=== PATIENT | female | born 1985 | race Caucasian/White ===

== ENCOUNTER 2017-12-28 20:15 | Emergency (ER) | payer OTHER ==
[2017-12-29] MEDS: TETRACAINE 0.5% OPHTH SOLN 4ML OS
[2017-12-29] MEDS: CIPROFLOXACIN 0.3% OPHTH SOLN 2.5ML OS (00:23)
== END 2017-12-29 00:25 | disposition home or self-care (01) ==
LOC: M ED 12-29 00:25
DX: H10.022 Other mucopurulent conjunctivitis, left eye (principal); E03.9 Hypothyroidism, unspecified; K21.9 Gastro-esophageal reflux disease without esophagitis; Z79.899 Other long term (current) drug therapy
CPT/HCPCS: 99283

== ENCOUNTER 2018-12-28 15:16 | Emergency (ER) | payer OTHER ==
[~2018-12-28] VITALS: Ht 165.1 cm; Wt 68.2 kg
[~2018-12-28 15:16] MED LIST: PROT1TAB2 PO; SYNT25TA PO; VIGA0.02 OS
[2018-12-28] MEDS ORDERED: NITR0.4S14 SL (15:23)
--- NOTE | 2018-12-28 17:36 | REP ---
Right groin ultrasound with Doppler assessment: History: Right-sided pelvic pain, rule out pseudoaneurysm. The patient gives a history of cardiac cath access right groin December 10, 2018 with pain. Findings: Scanning in the right groin shows no evidence of pseudoaneurysm. There are small hypoechoic areas adjacent to the proximal superficial femoral artery compatible with small areas of hematoma. No flow is seen. There are two hypoechoic areas measuring 2.8 x 0.4 x 0.5 cm and 1.0 x 0.8 x 0.6 cm. Normal flow is seen in the common femoral and superficial femoral artery proximally on the right. The common femoral vein compresses normally. There are normal-appearing inguinal lymph nodes. Impression: No evidence of pseudoaneurysm. Small areas of hypoechoic texture consistent with small hematoma. Electronically Signed by Saravanan Ortiz MD 12/28/2018 06:51 P
[2018-12-28 18:23] VITALS: BP 120/78
== END 2018-12-28 19:13 | disposition home or self-care (01) ==
LOC: M ED 15:16
DX: L76.32 Postprocedural hematoma of skin and subcutaneous tissue following other procedure (principal); Z98.61 Coronary angioplasty status; I25.2 Old myocardial infarction; E03.9 Hypothyroidism, unspecified

== ENCOUNTER 2019-10-15 16:47 | Emergency (ER) | payer OTHER ==
[~2019-10-15 16:47] MED LIST changes: +NITR0.4S14 SL
[2019-11-21 09:30] LABS: ALBUMIN 3.8 GM/DL (3.2-5.2); ALT/SGPT 44 U/L (12-78); BILIRUBIN,TOTAL 0.4 MG/DL (0.2-1.0); BLOOD UREA NITROGEN 15 MG/DL (7-18); CALCIUM LEVEL 9.3 MG/DL (8.5-10.1); CARBON DIOXIDE LEVEL 27 MEQ/L (21-32); CHLORIDE LEVEL 107 MEQ/L (98-107); CREATININE FOR GFR 1.02 MG/DL (0.55-1.30); GLOMERULAR FILTRATION RATE > 60.0 (>60); GLUCOSE, FASTING 84 MG/DL (70-100); POTASSIUM SERUM 4.2 MEQ/L (3.5-5.1); SODIUM LEVEL 140 MEQ/L (136-145); TOTAL PROTEIN 6.5 GM/DL (6.4-8.2); TROPONIN I < 0.02 NG/ML (< 0.10)
--- NOTE | 2019-11-30 15:33 | ECGEPIP ---
SINUS BRADYCARDIA BORDERLINE ECG NONSPECIFIC ST & T-WAVE ABNORMALITY INTERPRETATION BASED ON A DEFAULT AGE OF 40 YEARS NO OLD AVAILABLE SEE SCANNED DOWNTIME REPORT MTDD
[2019-12-05 20:27] LABS: BASO # 0.1 10^3/uL (0.0-0.2); BASO % 0.6 % (0.0-1.0); EOS # 0.4 10^3/uL (0.0-0.5); EOS % 4.6 % (0.0-3.0); HEMATOCRIT 37.4 % (36.0-47.0); HEMOGLOBIN 12.8 g/dl (12.0-15.5); LYMPH # 2.8 10^3/uL (1.5-5.0); LYMPH % 28.8 % (24.0-44.0); MEAN CORPUSCULAR HGB CONC 34.2 g/dl (32.0-36.5); MEAN CORPUSCULAR VOLUME 87.6 fl (80.0-96.0); MONO # 0.7 10^3/uL (0.0-0.8); MONO % 7.7 % (0.0-5.0); NEUTROPHILS # 5.6 10^3/uL (1.5-8.5); PLATELET COUNT, AUTOMATED 198 10^3/uL (150-450); RED BLOOD COUNT 4.27 10^6/uL (4.00-5.40); WHITE BLOOD COUNT 9.6 10^3/uL (4.0-10.0)
== END 2019-10-15 18:40 | disposition home or self-care (01) ==
LOC: M ED 16:47
DX: R00.2 Palpitations (principal); I25.2 Old myocardial infarction; K21.9 Gastro-esophageal reflux disease without esophagitis; I71.2 Thoracic aortic aneurysm, without rupture; Z87.891 Personal history of nicotine dependence; Z79.899 Other long term (current) drug therapy; Z91.041 Radiographic dye allergy status

== ENCOUNTER → 2019-12-30 | Outpatient (CLI) | payer OTHER ==
--- NOTE | 2019-12-30 11:13 | REPVR ---
PROCEDURE INFORMATION: Exam: CT Maxillofacial Without Contrast, Sinus Exam date and time: 12/30/2019 9:11 AM Age: 34 years old Clinical indication: Condition or disease; Other: Chronic pna sinusitis TECHNIQUE: Imaging protocol: CT Maxillofacial without contrast. Focus on the sinuses. Radiation optimization: All CT scans at this facility use at least one of these dose optimization techniques: automated exposure control; mA and/or kV adjustment per patient size (includes targeted exams where dose is matched to clinical indication); or iterative reconstruction. COMPARISON: No relevant prior studies available. FINDINGS: Frontal sinuses: Normal. No air-fluid levels. Ethmoid air cells: Normal. No air-fluid levels. Sphenoid sinuses: Normal. No air-fluid levels. Maxillary sinuses: There is mild mucosal thickening along the floor of the right maxillary sinus. No air-fluid levels. Ostiomeatal units are patent. Nasal cavity/Septum: There is leftward nasal septal deviation with a spur. This impinges upon the inferior nasal turbinate. Orbital cavity: Orbits are normal. Globes are unremarkable. Bones/joints: Unremarkable. Soft tissues: Unremarkable. IMPRESSION: No significant sinus mucosal disease. Electronically signed by: Deanne Rubi On 12/30/2019 11:12:53 AM
== END ==
LOC: M RAD 08:54
PROVIDERS: ATTEND Otolaryngology
DX: J32.4 Chronic pansinusitis (principal)

== ENCOUNTER → 2020-01-11 | Outpatient (CLI) | payer OTHER ==
--- NOTE | 2020-01-11 08:37 | PFTRPT ---
Height: 65.00 Inches Weight: 155.00 Lbs BSA: 1.78 Diagnosis: SOB DATE: 01/11/2020 ORDERING PHYSICIAN: Charly Lincoln Pre and post bronchodilator studies have excellent technical quality. Forced vital capacity is normal. FEV1 is in proportion, obstructive index is therefore normal. Expiratory limit within the flow-volume loop is normal. No significant bronchodilator response is identified. Total lung capacity is normal. Residual volume is in proportion. Diffusing capacity is normal. No hemoglobin available for correction. Airway resistance fairly normal. IMPRESSION: Normal study. MTDD
== END ==
LOC: M CARPUL 08:02
PROVIDERS: ATTEND Physician Assistant
DX: R06.02 Shortness of breath (principal)

== ENCOUNTER → 2020-01-27 | Outpatient (CLI) | payer OTHER ==
--- NOTE | 2020-01-30 12:13 | ECHO ---
DATE OF PROCEDURE: 01/28/2020 Age: 34 Gender: Female Height: 165 cm. Weight: 75 mg. REFERRING PROVIDER: Ivelisse Aguilar NP INDICATION: Abnormal examination. MEASUREMENTS: IVS 1.1 LV 4.3 LVPW 1.0 LA 3.4. Aorta 3.2. IVC 1.7 Left atrial volume index 22. Mitral E wave velocity 88, A wave 45 E prime septal 8.8 E prime lateral 6.8. FINDINGS: The study is of good technical quality. Patient is in sinus rhythm. Left ventricle is of normal size and has normal systolic function. I estimated left ventricular ejection fraction (LVEF) 60%-65%. No segmental wall motion abnormalities are appreciated. Right ventricle is also normal size and systolic function. Both atria appear normal. All four cardiac valves were reasonably well seen and appear normal. No pericardial effusion is present. Inferior vena cava is of normal size, but there is some reduction of appropriate decrease in size with inspiration, indicative of possibly mildly elevated central venous pressure. Aortic root, aortic arch, and visualized segment of abdominal aorta appear normal. Doppler interrogation reveals competent aortic valve. There is mild mitral and mild to moderate tricuspid insufficiency. Calculated pulmonary artery pressure is at least close to 40 mm of mercury. Pulmonic valve is functionally competent. Mitral inflow pattern on tissue Doppler imaging of mitral annulus revealed normal diastolic function. CONCLUSIONS: 1. Study is of acceptable technical quality. The patient is in sinus rhythm. 2. Normal LV size, systolic and diastolic function. 3. Mild mitral insufficiency. 4. Mild to moderate tricuspid insufficiency. 5. Possibly mildly elevated central venous pressure and at least mild and more likely moderate pulmonary hypertension. MTDD
== END ==
LOC: M CARPUL 08:55
DX: Z00.00 Encounter for general adult medical examination without abnormal findings (principal); I27.20 Pulmonary hypertension, unspecified; I08.1 Rheumatic disorders of both mitral and tricuspid valves

== ENCOUNTER → 2020-06-20 | Outpatient (CLI) | payer OTHER ==
[~2020-06-20] MED LIST changes: +METHACHOLINE KIT (J7674) INH ONE
--- NOTE | 2020-06-20 08:45 | PFTRPT ---
Height: 65.00 Inches Weight: 155.00 Lbs BSA: 1.78 Diagnosis: SOB DATE: 06/20/2020 ORDERED BY: Zaki Henriquez PA-C QUALITY: Study of excellent technical quality. PROCEDURE: Under protocol, methacholine was administered. At a dose of 0.25 mg or 1.375 CDUs, a 35% decline in the FEV1 was noted. PC of 0.08 is significant. Flow rates did return to baseline post bronchodilator administration. IMPRESSION: Positive methacholine challenge study. MTDD
== END ==
LOC: M CARPUL 07:57
PROVIDERS: ATTEND Physician Assistant Medical
DX: I10 Essential (primary) hypertension (principal)
CPT/HCPCS: 94070; J7674

== ENCOUNTER 2020-07-03 10:34 | Emergency (ER) | payer OTHER ==
[~2020-07-03] VITALS: Ht 162.6 cm; Wt 75.2 kg
[~2020-07-03 10:34] MED LIST changes: -METHACHOLINE KIT (J7674) INH ONE
[2020-07-03] MEDS ORDERED: ZOLO100T PO (10:40)
[2020-07-03] MEDS ORDERED: LEVOTAB10 (10:42)
[2020-07-03] MEDS ORDERED: HYDR-4570 (10:42)
[2020-07-03] MEDS ORDERED: ADV250INH INH (10:42)
[2020-07-03 11:47] LABS: BASO # 0.1 10^3/uL (0.0-0.2); BASO % 0.9 % (0.0-1.0); EOS # 0.3 10^3/uL (0.0-0.5); EOS % 4.1 % (0.0-3.0); HEMATOCRIT 41.1 % (36.0-47.0); HEMOGLOBIN 13.9 g/dl (12.0-15.5); LYMPH # 1.9 10^3/uL (1.5-5.0); LYMPH % 25.7 % (24.0-44.0); MEAN CORPUSCULAR HEMOGLOBIN 29.6 pg (27.0-33.0); MEAN CORPUSCULAR HGB CONC 33.8 g/dl (32.0-36.5); MEAN CORPUSCULAR VOLUME 87.4 fl (80.0-96.0); MONO # 0.6 10^3/uL (0.0-0.8); MONO % 7.8 % (2.0-8.0); NEUTROPHILS # 4.6 10^3/uL (1.5-8.5); NEUTROPHILS % 61.1 % (36.0-66.0); PLATELET COUNT, AUTOMATED 213 10^3/uL (150-450); WHITE BLOOD COUNT 7.5 10^3/uL (4.0-10.0)
[2020-07-03 12:07] LABS: HCG, SERUM QUALITATIVE NEGATIVE (NEGATIVE)
[2020-07-03] MEDS ORDERED: KETOROLAC 30 MG/ML 1ML VIAL IV ONE (12:10)
[2020-07-03 12:28] LABS: ALBUMIN 3.9 GM/DL (3.2-5.2); ALT/SGPT 33 U/L (12-78); BILIRUBIN,DIRECT 0.1 MG/DL (0.0-0.2); BILIRUBIN,TOTAL 0.4 MG/DL (0.2-1.0); BLOOD UREA NITROGEN 10 MG/DL (7-18); CALCIUM LEVEL 9.3 MG/DL (8.5-10.1); CARBON DIOXIDE LEVEL 28 MEQ/L (21-32); CHLORIDE LEVEL 104 MEQ/L (98-107); CREATININE FOR GFR 0.75 MG/DL (0.55-1.30); GLOMERULAR FILTRATION RATE > 60.0 (>60); GLUCOSE, FASTING 83 MG/DL (70-100); LIPASE 150 U/L (73-393); POTASSIUM SERUM 4.2 MEQ/L (3.5-5.1); SODIUM LEVEL 138 MEQ/L (136-145)
--- NOTE | 2020-07-03 12:44 | REP ---
INDICATION: rlq pain ovarian cyst?. COMPARISON: None. TECHNIQUE: Transabdominal scanning is performed.. FINDINGS: Uterine dimensions are normal at 8.8 x 3.8 x 6.5 cm. Endometrial echo is 1.2 cm thick and centrally placed. No free fluid is seen in the cul-de-sac. Visualized bladder upt[place] are smooth. The right ovary has dimensions of 4.5 x 2.3 x 2.4 cm. It's Doppler flow is normal with a resistive index of 0.64. The left ovary dimensions are normal as well at 2.9 x 2.1 x 2.0 cm. It's Doppler flow was normal with resistive index of 0.60. IMPRESSION: Normal pelvic sonography. <Electronically signed by Kevin Ortiz > 07/03/20 [id number]
--- NOTE | 2020-07-03 13:21 | REP ---
INDICATION: pain rlq contrast allergy. COMPARISON: None. TECHNIQUE: Helical scanning is acquired in 4 mm axial images were reformatted. Coronal and sagittal MPR images were generated and reviewed. FINDINGS: Preliminary digital kennel aide radiograph demonstrates moderate amount of stool in the proximal and descending colon. The lung bases are clear on axial CT images. The liver is normal in size homogeneous in texture. Spleen is unremarkable. No abnormality is noted in the gallbladder. The pancreas is normal in appearance. There is an accessory splenule at the inferior spleen tip in the left upper quadrant. The kidneys are morphologically intact. No stone or hydronephrosis is seen. No retroperitoneal mass or adenopathy is observed. Small and large bowel loops are unremarkable except for moderate stool in the upper abdomen. Pelvic CT images demonstrate a normal appendix in the right lower quadrant. There is some formed stool in normal caliber distal colon. No uterine or ovarian abnormality is seen. Urinary bladder is intact. No abdominal wall defect is observed. Bone window settings show no bony destructive lesion. IMPRESSION: Moderate stool. Otherwise unremarkable CT study abdomen and pelvis. No urinary tract calculus or hydronephrosis. Normal appendix seen. No acute abnormality noted. <Electronically signed by Kevin Ortiz > 07/03/20 [id number]
[2020-07-03] MEDS ORDERED: IBUP-1022 PO (13:35)
[2020-07-03 13:52] VITALS: BP 117/70
== END 2020-07-03 13:54 | disposition home or self-care (01) ==
LOC: M ED 10:34
DX: R10.2 Pelvic and perineal pain (principal); F17.200 Nicotine dependence, unspecified, uncomplicated; K21.9 Gastro-esophageal reflux disease without esophagitis; I51.9 Heart disease, unspecified; Z91.041 Radiographic dye allergy status
CPT/HCPCS: 74176; 76856; 80048; 80076; 81001; 83690; 84703; 85025; 96374; 99284; J1885

== ENCOUNTER → 2020-07-05 | Outpatient (CLI) | payer OTHER ==
[~2020-07-05] MED LIST changes: +ADV250INH INH; +HYDR-4570; +IBUP-1022 PO; +LEVOTAB10; +ZOLO100T PO
== END ==
LOC: M LAB 11:40
PROVIDERS: ATTEND Otolaryngology
DX: N39.0 Urinary tract infection, site not specified (principal)